=== PATIENT | female | born 1970 | race Caucasian/White ===

== ENCOUNTER 2022-06-14 20:01 | Emergency (ER) | payer OTHER ==
[~2022-06-14] VITALS: Ht 157.5 cm; Wt 104.3 kg
[2022-06-14] MEDS ORDERED: FIORICET 50-301 EACH PO (21:44)
[2022-06-14] MEDS ORDERED: CLONIDINE HCL0.1 MG PO (21:44)
== END 2022-06-14 21:49 | disposition home or self-care (01) ==
LOC: ER 20:12
DX: R51.9 Headache, unspecified (principal); I10 Essential (primary) hypertension
CPT/HCPCS: 70450; 93005; 99283